=== PATIENT | male | born 1960 | race Caucasian/White ===

== ENCOUNTER 2021-03-26 08:00 | Outpatient (CLI) | payer OTHER | END 2021-03-26 08:30 | disposition home or self-care (01) | LOC: PPH VACUNA 08:00 | PROVIDERS: ATTEND Emergency Medicine Pediatric Emergency Medicine | DX: Z23 Encounter for immunization (principal) ==

== ENCOUNTER 2021-05-23 19:41 | Emergency (ER) | payer BC ==
[~2021-05-23] VITALS: Ht 160 cm; Wt 83.9 kg
== END 2021-05-23 23:24 | disposition home or self-care (01) ==
LOC: ER 19:41
DX: M79.644 Pain in right finger(s) (principal)

== ENCOUNTER 2022-04-24 18:30 | Emergency (ER) | payer BC ==
[~2022-04-24] VITALS: Ht 157.5 cm; Wt 88.5 kg
== END 2022-04-24 22:41 | disposition home or self-care (01) ==
LOC: ER 18:30
DX: R07.89 Other chest pain (principal); Z20.822 Contact with and (suspected) exposure to COVID-19